=== PATIENT | female | born 1980 ===

== ENCOUNTER 2021-07-12 15:57 | Outpatient (CLI) | payer BC | END 2021-07-12 15:58 | disposition home or self-care (01) | LOC: CSHLAB 15:57 | PROVIDERS: ATTEND Obstetrics & Gynecology | DX: Z01.812 Encounter for preprocedural laboratory examination (principal); Z20.822 Contact with and (suspected) exposure to COVID-19 | CPT/HCPCS: 84703; 85027; 86850; 86900; 86901; U0003; U0005 ==

== ENCOUNTER → 2021-07-17 | Day surgery (SDC) | payer BC ==
[2021-07-12 15:57] VITALS: BMI 33.3
[2021-07-12 17:02] LABS: Hemoglobin 13.7 g/dL (12.0-15.5); Mean Corpuscular HGB CONC 33.7 g/dL (32.0-36.0); Mean Corpuscular Hemoglobin 31.3 pg (27.0-33.0); Mean Corpuscular Volume 92.9 fl (81.6-98.3); Mean Platelet Volume 9.1 fl (7.4-10.4); Platelet Count 321 10x3/uL (150-450); RBC Distribution Width 13.1 % (11.5-14.5); Red Blood Cell (RBC) Count 4.38 10x6/uL (3.90-5.03); White Blood Cell (WBC) Count 10.1 10x3/uL (3.5-10.5)
[2021-07-12 17:14] LABS: BHCG - Serum Negative (NEGATIVE); Pregs Control Background? CLEAR/WHITE (CLR/WHITE); Pregs Control Bar Appear? YES (CONTROL BAR)
[2021-07-13 12:04] LABS: SARS-CoV-2 PCR by NAA Not Detected (NotDetected)
[~2021-07-17] MED LIST: Bupivacaine PF 0.5% 30 ML VIAL ONE; CeleCOXIB 100 MG CAP ONE; Dexamethasone 4 mg/ml Vial ONE; EPINEPHrine 1 MG/ML AMP ONE; Famotidine/PF 20 mg/2ml Vial ONE; Fentanyl 100 MCG/2 ML VIAL ONE; Gabapentin 300 MG CAP ONE; Glycopyrrolate 0.2 MG/ML 5 ML SYRINGE ONE; HYDROcodone/Acetaminophen 5/325 mg Tablet ONE; Lidocaine 1% MPF 2 ML VIAL ONE; Lidocaine 1% PF 5 ML VIAL ONE; Methylene Blue 50 MG/10 ML AMPUL ONE; Midazolam HCl 2 mg/2 ml Vial IVP SCH; Midazolam HCl 2 mg/2 ml Vial ONE; Ondansetron PF 4 MG/2 ML Vial ONE; PROPOFOL 20 ML ONE; Rocuronium Bromide 10 MG/ML (10ML VIAL) ONE
[2021-07-17 12:52] LABS: Follicle Stimulating Hormone 6.83 mIU/mL (See Ranges); Free T4 (Free Thyroxine) 1.04 ng/dL (0.70-1.48); Luteinizing Hormone 9.55 mIU/mL (See Ranges); Thyroid Stimulating Hormone 0.3252 uIU/mL (0.35-4.94)
== END ==
LOC: CSHSDC 11:25
PROVIDERS: ATTEND Obstetrics & Gynecology
PROC: 0UT04ZZ Resection of Right Ovary, Percutaneous Endoscopic Approach (ICD-10-PCS; principal; 2021-07-17)
PROC: 0UT54ZZ Resection of Right Fallopian Tube, Percutaneous Endoscopic Approach (ICD-10-PCS; principal; 2021-07-17)
PROC: 0UBF4ZX Excision of Cul-de-sac, Percutaneous Endoscopic Approach, Diagnostic (ICD-10-PCS; principal; 2021-07-17)
DX: N83.291 Other ovarian cyst, right side (principal); N73.6 Female pelvic peritoneal adhesions (postinfective); N97.9 Female infertility, unspecified; E05.00 Thyrotoxicosis with diffuse goiter without thyrotoxic crisis or storm; I87.2 Venous insufficiency (chronic) (peripheral); Z20.822 Contact with and (suspected) exposure to COVID-19; Z79.899 Other long term (current) drug therapy; Z88.1 Allergy status to other antibiotic agents
CPT/HCPCS: 36415; 83001; 83002; 84439; 84443; 84703; 85027; 86850; 86900; 86901; 88112; 88305; 88307; C1713; J0171; J0690; J1100; J2250; J2405; J2704; J3010; Q9968; S0020; S0028; U0003; U0005